=== PATIENT | male | born 1970 | race Caucasian/White ===

== ENCOUNTER 2016-03-12 14:18 | Observation (INO) | payer SELFPAY ==
[2016-03-12 14:27] VITALS: BMI 29.9
[2016-03-12 14:53] LABS: AUTOMATED BASOPHIL 2.8 % (0-2); AUTOMATED EOSINOPHIL 2.3 % (0-5); AUTOMATED LYMPH 42.8 % (17-44); AUTOMATED MONOCYTE 8.7 % (3-10); AUTOMATED NEUTROPHIL 43.4 % (45-76); MPV 7.3 fL (7.4-10.4)
[2016-03-12] MEDS ORDERED: NS 1,000 ML IV ONE (15:01)
[2016-03-12] MEDS ORDERED: LORAZEPAM 2 MG/ML VIAL IV ONE (15:01)
[2016-03-12 15:07] LABS: ALL NEG? YES; MDMA* NEG (NEGATIVE); METHAMPHETAMINES NEG (NEGATIVE); OXYCODONE NEG (NEGATIVE)
[2016-03-12 15:08] LABS: BLOOD UREA NITROGEN 11 MG/DL (9-20); CALC CORRECTED 8.6 MG/DL (8.4-10.2); CALCIUM 8.1 MG/DL (8.4-10.2); CALCULATED OSMOLALITY 281 MOs/Kg (270-290); CHLORIDE 106 mEq/L (98-107); GLUCOSE 91 MG/DL (70-99); SODIUM LEVEL 147 mEq/L (137-146); TOTAL PROTEIN 7.1 G/DL (6.3-8.2)
--- NOTE | 2016-03-12 15:09 | EDPRACDOC ---
ED Alcohol/Substance Withdrawl - General Information Chief Complaint: Psychiatric Illness Stated Complaint: DETOX Time Seen by Provider: 03/12/16 14:56 Information Source: Patient Mode of Arrival: Car Home Medications: Home Medications Eszopiclone [Lunesta] 2 mg PO QHS PRN 03/12/16 Gabapentin 1,200 mg PO TID 03/12/16 Methocarbamol [Robaxin] 500 mg PO QID PRN 03/12/16 Allergies/Adverse Reactions: Allergies Allergy/AdvReac Type Severity Reaction Status Date / Time No Known Allergies Allergy Verified 03/12/16 14:27 - History of Present Illness Onset: WEEK HPI: PT SAID THAT HE WANTS HELP WITH DETOX FROM ALCOHOL. HE SAID THAT HE'S TRIED TO QUIT IN THE PAST, BUT CAN'T. WHEN HE QUITS, HIS HEART RACES. HE ALSO HAS HAD A SEIZURE. Stopped/Reduced Use For: Hours Altered Mental Status For: Reports: None Relevant History: Reports: Alcoholism, Substance Abuse Current Substance of Use: Reports: Alcohol Circumstances: Reports: Withdrawal Symptoms Severity: Mild Associated Signs & Symptoms: Reports: None ED Past Medical History - Patient Medical History Neurological History: Reports: Seizures GI/ History: Reports: Gastroesophageal Reflux Psychological History: Reports: Depression, Anxiety, Bipolar Disorder Additional Past Medical History: CHRONIC BACK PAIN Surgical History: Reports: Other (BACK SURGERY) - Social Medical History Smoking Status: Light tobacco smoker (less than 5/day) ETOH: Abuse Substance Abuse: None Lives In: Home EDM Review of Systems - Review of Systems ROS Negative Except as Marked: Yes All systems reviewed and were negative except as marked Neurological: Numbness Musculoskeletal: Back - Physical Exam Constitutional: No apparent distress, Alert (Awake) Oriented to: Time, Person, Place Last recorded Vital Signs: Last Vital Signs Temp 97.4 F L 03/12/16 14:23 Pulse 101 03/12/16 14:23 Resp 20 03/12/16 14:23 BP 151/95 03/12/16 14:23 Pulse Ox 96 03/12/16 14:23 Oxygen Pulse Oxygen Saturation 96 O2 Device Room Air Oxygen Flow Rate Fraction of Inspired Oxygen ( FIO2) - HEENT Head: Normal ( normocephalic) Eye Exam: Normal (PERRL, EOMI, Sclera white) Oropharynx: Membranes Dry ENT EAC: Normal TMJ: Normal Nose: No Symptoms Reported (septum midline) Neck: Normal (FROM, trachea at midline) - Respiratory/Cardiovascular Respiratory: Normal - CTA Cardiovascular: Tachycardia - GI Auscultation: Normal (NABS) Palpation: Normal (Soft,No rebound or guarding, non distended) Tenderness: Diffuse, Mild Heart's Sign: Negative - Musculoskeletal Back: Normal (Non-Tender) Extremities: Pedal Edema - Integumentary Skin: Normal, Warm, Dry Lymphatics: Normal (no adenopathy) - Neurologic Memory Impaired: Normal Motor Function: Normal (Normal tone, Pulses 2+ No cyanosis or edema, FROM) Cranial Nerve: Normal (CN II-X11 intact sensation, strength 5/5) Cerebellar: Normal Mood Description: Anxious Perception: Normal - Results 03/12/16 14:29 03/12/16 14:29 WBC 4.1 xk/uL (3.8-10.8) 03/12/16 14:29 RBC 4.08 xM/uL (4.70-6.10) L 03/12/16 14:29 Hgb 11.5 g/dL (14.0-18.0) L 03/12/16 14:29 Hct 34.8 % (42-52) L 03/12/16 14:29 MCV 85 fL (80-94) 03/12/16 14:29 MCH 28.3 pg (27-32) 03/12/16 14:29 MCHC 33.2 g/dl (33-36) 03/12/16 14:29 RDW 25.9 % (11.5-14.5) H 03/12/16 14:29 Plt Count 227 xk/uL (130-400) 03/12/16 14:29 MPV 7.3 fL (7.4-10.4) L 03/12/16 14:29 Lab Results 03/12/16 14:29 WBC 4.1 RBC 4.08 L Hgb 11.5 L Hct 34.8 L MCV 85 MCH 28.3 MCHC 33.2 RDW 25.9 H Plt Count 227 MPV 7.3 L - EKG EKG #1 EKG Time: 15:24 -: Yes EKG interpreted by me Rate: bpm: 84 [place]: Normal Rhythm: NSR Block: None Hypertrophy: None ST: Normal - Additional Information PT D/W MH. THEY WERE ABLE TO GET HIM A BED AT [facility], BUT HE REFUSED TO GO INPATIENT. PT WILL BE GIVEN NUMBERS FOR OUTPATIENT DETOX. Decision Time to Discharge: 20:02 - Departure Yes I personally saw and evaluated the patient. Disposition: Home Condition: Fair Final Diagnosis: Alcohol abuse, Chronic low back pain Education/Counseling Given To: Patient Education/Counseling Given Regarding: Diagnosis, Treatment, Follow Up
[2016-03-12 15:16] LABS: ETOH-MGDL 296 mg/dL
[2016-03-12 15:23] LABS: LEUKOCYTES/URINE NEG (NEGATIVE); NITRITE/URINE NEG (NEGATIVE); RBC/URINE 0-2 (0-2); URINE OCCULT BLOOD NEG (NEG/TRACE); WBC/URINE 0-2 (0-2)
[2016-03-12] MEDS ORDERED: THIAMINE 100 MG TAB PO ONE (15:39)
[2016-03-12] MEDS ORDERED: VITAMINS,PRENATAL TABLET PO ONE (15:39)
[2016-03-12] MEDS ORDERED: Docusate Sodium 100 MG CAP PO PRN (15:39)
[2016-03-12] MEDS ORDERED: GUAIFENESIN 200 MG/10 ML UDC PO PRN (15:39)
[2016-03-12] MEDS ORDERED: MAGNESIUM HYDROXIDE 30 ML BOTTLE PO PRN (15:39)
[2016-03-12] MEDS ORDERED: IBUPROFEN 400 MG TAB PO PRN (15:39)
[2016-03-12] MEDS ORDERED: DICYCLOMINE 20 MG TAB PO PRN (15:39)
[2016-03-12] MEDS ORDERED: ONDANSETRON HCL 4 MG ODT TAB PO PRN (15:39)
[2016-03-12] MEDS ORDERED: METHOCARBAMOL 500 MG TAB PO PRN (15:40)
[2016-03-12] MEDS ORDERED: ESZOPICLONE 2 MG PO PRN (15:40)
[2016-03-12] MEDS ORDERED: LORAZEPAM 1 MG TAB PO SCH ×2 (16:00)
[2016-03-12] MEDS ORDERED: OXYCODONE HCL 5 MG TABLET PO SCH (19:30)
[2016-03-12] MEDS ORDERED: OXYCODONE HCL 5 MG TABLET ONE (19:41)
[2016-03-12] MEDS ORDERED: GABAPENTIN 400 MG CAP PO SCH (21:00)
[2016-03-12 21:40] VITALS: BP 130/80; PULSE 94; TEMP 98.2
[2016-03-13] MEDS ORDERED: THIAMINE 100 MG TAB PO SCH (12:00)
[2016-03-13] MEDS ORDERED: VITAMINS,PRENATAL TABLET PO SCH (12:00)
[2016-03-13] MEDS ORDERED: LORAZEPAM 1 MG TAB PO SCH (16:00)
== END 2016-03-12 21:59 | disposition home or self-care (01) ==
LOC: ED 14:18 → EDINP 15:39 → TUOBSINP 16:06
PROVIDERS: ADMIT Emergency Medicine; ATTEND Emergency Medicine
DX: F10.10 Alcohol abuse, uncomplicated (principal); G89.29 Other chronic pain; M54.5 Low back pain; F17.200 Nicotine dependence, unspecified, uncomplicated
CPT/HCPCS: 36415; 80053; 80307; 81001; 83690; 85025; 86592; 93005; 96361; 96374; 99284; G0378; J2060; J3490

== ENCOUNTER 2016-03-15 00:27 | Observation (INO) | payer SELFPAY ==
[2016-03-15 00:43] VITALS: BMI 29.7
[2016-03-15] MEDS ORDERED: DIAZEPAM 5 MG TAB PO ONE ×2 (00:45→03:11)
[2016-03-15 01:35] LABS: AUTOMATED BASOPHIL 1.3 % (0-2); AUTOMATED EOSINOPHIL 1.1 % (0-5); AUTOMATED LYMPH 43.6 % (17-44); AUTOMATED MONOCYTE 7.9 % (3-10); AUTOMATED NEUTROPHIL 46.1 % (45-76); MPV 7.1 fL (7.4-10.4)
[2016-03-15 01:44] LABS: ALL NEG? YES; MDMA* NEG (NEGATIVE); METHAMPHETAMINES NEG (NEGATIVE); OXYCODONE NEG (NEGATIVE)
[2016-03-15 01:45] LABS: LEUKOCYTES/URINE NEG (NEGATIVE); NITRITE/URINE NEG (NEGATIVE); URINE OCCULT BLOOD NEG (NEG/TRACE)
[2016-03-15 01:46] LABS: BLOOD UREA NITROGEN 9 MG/DL (9-20); CALC CORRECTED 8.5 MG/DL (8.4-10.2); CALCULATED OSMOLALITY 279 MOs/Kg (270-290); CHLORIDE 106 mEq/L (98-107); GLUCOSE 89 MG/DL (70-99); SODIUM LEVEL 146 mEq/L (137-146); TOTAL PROTEIN 7.1 G/DL (6.3-8.2)
[2016-03-15 01:53] LABS: ETOH-MGDL 409 mg/dL
--- NOTE | 2016-03-15 02:58 | EDPRACDOC ---
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 Denies: Head, Face, Trunk, Extremities, Other Alcohol Ingested: Reports: ETOH Alcohol Type: Reports: Liquor Amount Per Day: 1-2 "fifths" Last Used: today Circumstances: Reports: Medical Clearance, Other Relevant History: Reports: Alcoholism, Detox Treatment (PT DESIRES INPAT CARE) Pain Severity: Moderate Altered Mental Status Severity: None Associated Signs & Symptoms: Reports: None - Alcohol Withdrawal Screening Recent significant alcohol intake (estimated BAL >0.15): Yes Recent cessation of alcohol intake: No Any indication of Alcohol Withdrawal Syndrome: negative: Autonomic Hyperactivity , Tremor, Insomnia, Nausea/Vomiting, Hallucinations, Psychomotor Agitation, Anxiety, Seizure Any indication of Delirium Tremens: negative: Severe form of DARBY, Altered Mental Status, Inattention, Disorientation Any Hx Alcohol Withdrawal Syndrome or Delirium Tremens: No Other Psychiatric Conditions: Positive: Depression (RECENTLY INCREASED B/C FROM SPOUSE) Other Medical or Trauma Conditions: No Other History: 03/15/16 03:00 PT SEEN THIS ED 3 DAYS AGO. OFFERED [facility] DETOX, PT REPORTEDLY DECLINED B/C OF WORK. PT GIVEN OUTPAT OPTIONS, STATES HE COULD NOT FIND A FACILITY. TODAY, CONTINUED DRINKING HEAVILY (1/5 TH [employer]). NOW WANTS INPAT DETOX. ED Past Medical History - Patient Medical History Neurological History: Reports: Seizures GI/ History: Reports: Gastroesophageal Reflux Psychological History: Reports: Depression, Anxiety, Bipolar Disorder Systemic History: Denies: Cancer Additional Past Medical History: CHRONIC BACK PAIN LUMBAR COMPRESSION FX Surgical History: Reports: Other (BACK SURGERY) - Social Medical History Smoking Status: Light tobacco smoker (less than 5/day) ETOH: Alcoholic Substance Abuse: None Lives With: Family, Other (SON) Lives In: Home EDM Review of Systems - Review of Systems ROS Negative Except as Marked: Yes All systems reviewed and were negative except as marked - Physical Exam Constitutional: Alert (Awake), Distress (BACK PAIN), Restless Oriented to: Time, Person, Place Last recorded Vital Signs: Last Vital Signs Temp 98.6 F 03/15/16 00:39 Pulse 94 03/15/16 00:39 Resp 20 03/15/16 00:39 BP 165/113 H 03/15/16 00:39 Pulse Ox 97 03/15/16 00:39 Oxygen Pulse Oxygen Saturation 97 O2 Device Room Air Oxygen Flow Rate Fraction of Inspired Oxygen ( FIO2) - HEENT Head: Normal ( normocephalic) Eye Exam: Normal (PERRL, EOMI, Sclera white) Oropharynx: Normal (Pharynx:Moist without exudate,Gums-no swelling) Nose: No Symptoms Reported Neck: Normal (FROM, trachea at midline) - Respiratory/Cardiovascular Respiratory: Normal - CTA (BBS clear to auscultation without adventitious sounds ) Cardiovascular: Normal (RRR without murmur, gallop or rub) - GI Auscultation: Normal (NABS) Palpation: Normal (Soft,No rebound or guarding, non distended) Tenderness: Non tender Heart's Sign: Negative - Musculoskeletal Back: Normal (Non-Tender) Extremities: Normal (Normal tone, Pulses 2+ No cyanosis or edema, FROM) - Integumentary Skin: Normal, Warm, Dry Lymphatics: Normal (no adenopathy) - Neurologic Memory Impaired: Normal Motor Function: Normal (Normal tone, Pulses 2+ No cyanosis or edema, FROM) Cranial Nerve: Normal (CN II-X11 intact sensation, strength 5/5) Cerebellar: Normal Mood Description: Normal Thought: Coherent Perception: Normal CIWA - Clinical [place] Withdrawal Assessment Re-evaluation 1 Nausea & Vomitting: No Nausea & No Vomiting Tremor: No Tremor Paroxysmal Sweats: No sweat visible Anxiety: Mildly anxious Agitation: Normal activity Tactile Disturbances: None Auditory Disturbances: None Visual Disturbances: None Headache, Fullness in Head: Not Present Orientation & clouding of Sensorium: Oriented and can do serial additions Total CIWA Score: 1 - Re-evaluation Re-evaluation 2 Re-evaluation Time: 02:20 HYPERVENTILATING AND CRYING, THEN PASSED OUT BRIEFLY. NO POST ICTAL PERIOD. NO LOSS OF BLADDER OR BOWELS. NO INDICATION OF SZ. ALCOHOL LEVEL EXPECTED TO STILL BE HIGH, NOT A DECREASE ENOUGH TO CAUSE ALCOHOL WITHDRAWAL SZ. - Results Result Diagrams: 03/15/16 01:20 03/15/16 01:20 WBC 4.7 xk/uL (3.8-10.8) 03/15/16 01:20 RBC 4.23 xM/uL (4.70-6.10) L 03/15/16 01:20 Hgb 11.8 g/dL (14.0-18.0) L 03/15/16 01:20 Hct 36.0 % (42-52) L 03/15/16 01:20 MCV 85 fL (80-94) 03/15/16 01:20 MCH 27.9 pg (27-32) 03/15/16 01:20 MCHC 32.8 g/dl (33-36) L 03/15/16 01:20 RDW 25.5 % (11.5-14.5) H 03/15/16 01:20 Plt Count 233 xk/uL (130-400) 03/15/16 01:20 MPV 7.1 fL (7.4-10.4) L 03/15/16 01:20 Neut % (Auto) 46.1 % (45-76) 03/15/16 01:20 Lymph % (Auto) 43.6 % (17-44) 03/15/16 01:20 [place] % (Auto) 7.9 % (3-10) 03/15/16 01:20 Eos % (Auto) 1.1 % (0-5) 03/15/16 01:20 Baso % (Auto) 1.3 % (0-2) 03/15/16 01:20 Absolute Neuts (auto) 2.16 xk/uL (1.7-8.2) 03/15/16 01:20 Absolute Lymphs (auto) 2.02 xk/uL (0.65-4.75) 03/15/16 01:20 Platelet Estimate Norm (NORMAL) 03/15/16 01:20 RBC Morphology 2+ aniso 2+ hypo 1+ micro 1+ target 03/15/16 01:20 RBC Morphology 2+ aniso 2+ hypo 1+ micro 1+ target 03/15/16 01:20 RBC Morphology 2+ aniso 2+ hypo 1+ micro 1+ target 03/15/16 01:20 RBC Morphology 2+ aniso 2+ hypo 1+ micro 1+ target 03/15/16 01:20 Sodium 146 mEq/L (137-146) 03/15/16 01:20 Potassium 4.1 mEq/L (3.5-5.1) 03/15/16 01:20 Chloride 106 mEq/L (98-107) 03/15/16 01:20 Carbon Dioxide 25 mMOL/L (22-33) 03/15/16 01:20 Anion Gap 19 mEq/L (8-16) H 03/15/16 01:20 BUN 9 MG/DL (9-20) 03/15/16 01:20 Creatinine 0.60 MG/DL (0.66-1.25) L 03/15/16 01:20 Estimated GFR (MDRD) > 60 mL/min (>=60) 03/15/16 01:20 Glucose 89 MG/DL (70-99) 03/15/16 01:20 Calculated Osmolality 279 MOs/Kg (270-290) 03/15/16 01:20 Calcium 8.0 MG/DL (8.4-10.2) L 03/15/16 01:20 Corrected Calcium 8.5 MG/DL (8.4-10.2) 03/15/16 01:20 Total Bilirubin 0.8 MG/DL (0.2-1.3) 03/15/16 01:20 AST 178 IU/L (17-59) H 03/15/16 01:20 ALT 89 IU/L (21-72) H 03/15/16 01:20 Alkaline Phosphatase 79 IU/L (38-126) 03/15/16 01:20 Total Protein 7.1 G/DL (6.3-8.2) 03/15/16 01:20 Albumin 3.5 G/DL (3.5-5.0) 03/15/16 01:20 Urine Color Yellow 03/15/16 01:29 Urine Clarity Clear 03/15/16 01:29 Urine pH 8.0 (5.0-8.0) 03/15/16 01:29 Ur Specific [place] 1.010 (1.003-1.035) 03/15/16 01:29 Urine Protein Neg (NEG/TRACE) 03/15/16 01:29 Urine Glucose (UA) Neg (NEGATIVE) 03/15/16 01:29 Urine Ketones Neg (NEGATIVE) 03/15/16 01:29 Urine Occult Blood Neg (NEG/TRACE) 03/15/16 01:29 Urine Nitrite Neg (NEGATIVE) 03/15/16 01:29 Urine Bilirubin Neg (NEGATIVE) 03/15/16 01:29 Urine Urobilinogen <2.0 MG/DL (0-1) 03/15/16 01:29 Ur Leukocyte Esterase Neg (NEGATIVE) 03/15/16 01:29 Urine Opiates Screen Neg (NEGATIVE) 03/15/16 01:29 Ur Oxycodone Screen Neg (NEGATIVE) 03/15/16 01:29 Urine Methadone Screen Neg (NEGATIVE) 03/15/16 01:29 Ur Barbiturates Screen Neg (NEGATIVE) 03/15/16 01:29 Ur Tricyclics Screen Neg (NEGATIVE) 03/15/16 01:29 Ur Phencyclidine Scrn Neg (NEGATIVE) 03/15/16 01:29 Ur Amphetamines Screen Neg (NEGATIVE) 03/15/16 01:29 U Methamphetamines Scrn Neg (NEGATIVE) 03/15/16 01:29 Urine MDMA Screen Neg (NEGATIVE) 03/15/16 01:29 U Benzodiazepines Scrn Neg (NEGATIVE) 03/15/16 01:29 Urine Cocaine Screen Neg (NEGATIVE) 03/15/16 01:29 Ur THC Screen Neg (NEGATIVE) 03/15/16 01:29 Plasma/Serum Ethyl Alc 0.41 % (<0.01) H* 03/15/16 01:20 Lab Results 03/15/16 03/15/16 03/15/16 01:29 01:29 01:20 WBC 4.7 RBC 4.23 L Hgb 11.8 L Hct 36.0 L MCV 85 MCH 27.9 MCHC 32.8 L RDW 25.5 H Plt Count 233 MPV 7.1 L Neut % (Auto) 46.1 Lymph % (Auto) 43.6 [place] % (Auto) 7.9 Eos % (Auto) 1.1 Baso % (Auto) 1.3 Absolute Neuts (auto) 2.16 Absolute Lymphs (auto) 2.02 Platelet Estimate Norm RBC Morphology 1+ target Sodium Potassium Chloride Carbon Dioxide Anion Gap BUN Creatinine Estimated GFR (MDRD) Glucose Calculated Osmolality Calcium Corrected Calcium Total Bilirubin AST ALT Alkaline Phosphatase Total Protein Albumin Urine Color Yellow Urine Clarity Clear Urine pH 8.0 Ur Specific [place] 1.010 Urine Protein Neg Urine Glucose (UA) Neg Urine Ketones Neg Urine Occult Blood Neg Urine Nitrite Neg Urine Bilirubin Neg Urine Urobilinogen <2.0 Ur Leukocyte Esterase Neg Urine Opiates Screen Neg Ur Oxycodone Screen Neg Urine Methadone Screen Neg Ur Barbiturates Screen Neg Ur Tricyclics Screen Neg Ur Phencyclidine Scrn Neg Ur Amphetamines Screen Neg U Methamphetamines Scrn Neg Urine MDMA Screen Neg U Benzodiazepines Scrn Neg Urine Cocaine Screen Neg Ur THC Screen Neg Plasma/Serum Ethyl Alc 03/15/16 01:20 WBC RBC Hgb Hct MCV MCH MCHC RDW Plt Count MPV Neut % (Auto) Lymph % (Auto) [place] % (Auto) Eos % (Auto) Baso % (Auto) Absolute Neuts (auto) Absolute Lymphs (auto) Platelet Estimate RBC Morphology Sodium 146 Potassium 4.1 Chloride 106 Carbon Dioxide 25 Anion Gap 19 H BUN 9 Creatinine 0.60 L Estimated GFR (MDRD) > 60 Glucose 89 Calculated Osmolality 279 Calcium 8.0 L Corrected Calcium 8.5 Total Bilirubin 0.8 AST 178 H ALT 89 H Alkaline Phosphatase 79 Total Protein 7.1 Albumin 3.5 Urine Color Urine Clarity Urine pH Ur Specific [place] Urine Protein Urine Glucose (UA) Urine Ketones Urine Occult Blood Urine Nitrite Urine Bilirubin Urine Urobilinogen Ur Leukocyte Esterase Urine Opiates Screen Ur Oxycodone Screen Urine Methadone Screen Ur Barbiturates Screen Ur Tricyclics Screen Ur Phencyclidine Scrn Ur Amphetamines Screen U Methamphetamines Scrn Urine MDMA Screen U Benzodiazepines Scrn Urine Cocaine Screen Ur THC Screen Plasma/Serum Ethyl Alc 0.41 H* - Diagnostic Imaging L-Spine Image interpreted by: Radiologist - Additional Information Additional Information: POST VOID RESIDUAL VERY LOW, NO NUMBNESS OR WEAKNESS. NO INDICATION OF CAUDA EQUINA. - Departure Disposition: Admit to Final Diagnosis: Alcohol abuse Chronic low back pain Qualifiers: Back pain laterality: unspecified Sciatica presence: without sciatica Qualified Code(s): M54.5 - Low back pain; G89.29 - Other chronic pain Major depressive disorder with current active episode Qualifiers: Major depression recurrence: recurrent Major depression episode severity: moderate Qualified Code(s): F33.1 - Major depressive disorder, recurrent, moderate Instructions: Abuse of Alcohol (ED), Alcohol Withdrawal (ED), Core Strengthening Exercises (GEN), Back Pain Education/Counseling Given To: Patient, Family Member Education/Counseling Given Regarding: Diagnosis, Treatment Referrals: None,No Provider [Primary Care Provider] - One Week
[2016-03-15] MEDS ORDERED: OXYCODONE HCL 5 MG TABLET PO ONE (03:11)
[2016-03-15] MEDS ORDERED: LORAZEPAM 2 MG/ML VIAL IV PRN ×3 (03:24)
[2016-03-15] MEDS ORDERED: LORAZEPAM 1 MG TAB PO PRN ×3 (03:24)
[2016-03-15] MEDS ORDERED: DICYCLOMINE 20 MG TAB PO PRN (03:24)
[2016-03-15] MEDS ORDERED: Alcohol Withdrawal Scale Orders XX SCH (04:00)
[2016-03-15] MEDS ORDERED: LORAZEPAM 1 MG TAB PO SCH ×2 (04:00→12:00)
[2016-03-15] MEDS ORDERED: LORAZEPAM 1 MG TAB PO ONE ×2 (04:00→16:00)
[2016-03-15] MEDS: GABAPENTIN 300 MG CAP PO SCH ×2 (06:21→13:58)
[2016-03-15] MEDS: OXYCODONE HCL 5 MG TABLET PO PRN ×2 (11:16→16:21)
--- NOTE | 2016-03-15 11:16 | EDTUNOTE ---
- SOAP Note Patient Problems: Active Problems Alcohol abuse (Acute) F10.10 Chronic low back pain (Acute) M54.5, G89.29 Major depressive disorder with current active episode (Acute) F32.9 SOAP Note: 03/15/16 1105 Day 1 S: 45 y.o. M presented to ED for alcohol detox and back pain. Pt c/o lower back pain. Requesting his Librium. O: Vital Signs: Temp:98.3 F HR: 83 BP: 106/55 RR: 16 Pox: 94%. Resting comfortably CTA RRR Abd soft non tender No tremors with arm extension or tongue protrusion. A: Alcohol Abuse Chronic back pain P: Continue meds as directed for further stabilization.
--- NOTE | 2016-03-15 15:50 | TUDEPART ---
Discussion of OBS Stay: Mental Health states pt has detox placement at [facility] and will be discharged home to follow up with [facility]. Disposition: Home Condition: Stable Instructions: Abuse of Alcohol (ED), Alcohol Withdrawal (ED), Core Strengthening Exercises (GEN), Back Pain Education/Counseling Given To: Patient Education/Counseling Given Regarding: Diagnosis, Treatment Follow-up / Referrals: None,No Provider [Family Provider] - One Week Follow-up/Additional Instructions: Follow up with outpatient resources provided. - Physical Exam Constitutional: Alert (Awake), Distress (BACK PAIN), Restless Oriented to: Time, Person, Place Last recorded Vital Signs: Last Vital Signs Temp 97.8 F 03/15/16 11:10 Pulse 96 03/15/16 11:10 Resp 16 03/15/16 06:22 BP 102/64 03/15/16 11:10 Pulse Ox 95 03/15/16 11:10 Oxygen Pulse Oxygen Saturation 95 O2 Device Room Air Oxygen Flow Rate Fraction of Inspired Oxygen ( FIO2) - HEENT Head: Normal ( normocephalic) Eye Exam: Normal (PERRL, EOMI, Sclera white) Oropharynx: Normal (Pharynx:Moist without exudate,Gums-no swelling) Nose: No Symptoms Reported - Respiratory/Cardiovascular Respiratory: Normal - CTA (BBS clear to auscultation without adventitious sounds ) Cardiovascular: Normal (RRR without murmur, gallop or rub) - GI Auscultation: Normal (NABS) Palpation: Normal (Soft,No rebound or guarding, non distended) Tenderness: Non tender Heart's Sign: Negative - Musculoskeletal Back: Normal (Non-Tender) Extremities: Normal (Normal tone, Pulses 2+ No cyanosis or edema, FROM) - Integumentary Skin: Normal, Warm, Dry Lymphatics: Normal (no adenopathy) - Neurologic Memory Impaired: Normal Motor Function: Normal (Normal tone, Pulses 2+ No cyanosis or edema, FROM) Cranial Nerve: Normal (CN II-X11 intact sensation, strength 5/5) Cerebellar: Normal Mood Description: Normal Thought: Coherent Perception: Normal
[2016-03-15 16:51] VITALS: BP 127/85; PULSE 93; TEMP 98.3
[2016-03-16] MEDS ORDERED: LORAZEPAM 1 MG TAB PO SCH (06:00)
[2016-03-16] MEDS ORDERED: THIAMINE 100 MG TAB PO SCH (12:00)
[2016-03-16] MEDS ORDERED: VITAMINS,PRENATAL TABLET PO SCH (12:00)
== END 2016-03-15 16:45 | disposition home or self-care (01) ==
LOC: ED 00:27 → EDINP 03:25 → TUOBSINP 07:41
PROVIDERS: ADMIT Emergency Medicine; ATTEND Emergency Medicine
DX: F10.20 Alcohol dependence, uncomplicated (principal); F33.1 Major depressive disorder, recurrent, moderate; Y90.9 Presence of alcohol in blood, level not specified; G89.29 Other chronic pain; M54.5 Low back pain
CPT/HCPCS: 36415; 51798; 80053; 80307; 81001; 85025; 99284; G0378; J3490